=== PATIENT | female | born 1960 | race Caucasian/White ===

== ENCOUNTER 2024-10-23 13:33 | Emergency (ER) | payer BC ==
[2024-10-23 13:44] VITALS: TEMP 98.3
--- NOTE | 2024-10-23 13:59 | ED ---
Female Urogenital HPI - General Chief complaint: Urogenital Stated complaint: Urogenital Time Seen by Provider: 10/23/24 13:58 Source: patient Mode of arrival: ambulatory Limitations: no limitations - History of Present Illness Initial comments: 63-year-old female presenting with chief complaint of hematuria and dysuria. Patient had a cystoscopy back on 09/29 at [facility] due to blood in the urine. States that since then she has been very sore and has had huma hematuria that has not improved. She just finished a recent course of antibiotics and is still having symptoms. No fevers or chills. No nausea or vomiting. Patient states that sometimes she can feel herself passing air from her bladder. No flank pain. - Related Data Allergies Allergy/AdvReac Type Severity Reaction Status Date / Time tetanus and diphtheria Allergy Unknown Verified 10/23/24 13:44 toxoids Childhood Review of Systems ROS Statement: Those systems with pertinent positive or pertinent negative responses have been documented in the HPI. ROS Other: All systems not noted in ROS Statement are negative. Past Medical History Past Medical History: Diabetes Mellitus Additional Past Medical History / Comment(s): UTI, History of Any Multi-Drug Resistant Organisms: None Reported Past Surgical History: Appendectomy, Cholecystectomy, Hysterectomy, Orthopedic Surgery Additional Past Surgical History / Comment(s): rt knee Past Psychological History: No Psychological Hx Reported Smoking Status: Former smoker Past Alcohol Use History: None Reported Past Drug Use History: None Reported General Exam - General Exam Comments Initial Comments: Visual Physical Exam Vital signs reviewed General: Well-appearing, nontoxic, no acute distress. Head: Normocephalic, atraumatic Eyes: PERRLA, EOMI ENT: Airway patent Chest: Nonlabored breathing Skin: No visual rash, normal skin tone Neuro: Alert and oriented 3 Musculoskeletal: No gross abnormalities Limitations: no limitations General appearance: alert, in no apparent distress Head exam: Present: atraumatic, normocephalic, normal inspection Eye exam: Present: normal appearance, EOMI Neck exam: Present: normal inspection. Absent: meningismus Respiratory exam: Present: normal lung sounds bilaterally. Absent: respiratory distress, wheezes, rales, rhonchi, stridor Cardiovascular Exam: Present: regular rate, normal rhythm, normal heart sounds. Absent: systolic murmur, diastolic murmur, rubs, gallop, clicks GI/Abdominal exam: Present: soft, tenderness (Suprapubic). Absent: distended, guarding, rebound, rigid Neurological exam: Present: alert, oriented X3 Psychiatric exam: Present: normal affect, normal mood Skin exam: Present: warm, dry Course Vital Signs 10/23/24 13:37 Temperature 98.3 F Pulse Rate 98 Respiratory 16 Rate Blood Pressure 150/85 O2 Sat by Pulse 98 Oximetry Medical Decision Making - Medical Decision Making Was pt. sent in by a medical professional or institution (, PA, PEST CONTROL SERVICE REPRESENTATIVE, urgent care, hospital, or care home...) When possible be specific @ -No Did you speak to anyone other than the patient for history (EMS, parent, family, police, friend...)? What history was obtained from this source @ -No Did you review nursing and triage notes (agree or disagree)? Why? @ -I reviewed and agree with nursing and triage notes Were old charts reviewed (outside hosp., previous admission, EMS record, old EKG, old radiological studies, urgent care reports/EKG's, care home records)? Report findings @ -No old charts were reviewed Differential Diagnosis (chest pain, altered mental status, abdominal pain women, abdominal pain men, vaginal bleeding, weakness, fever, dyspnea, syncope, headache, dizziness, GI bleed, back pain, seizure, CVA, palpatations, mental health, musculoskeletal)? @ -MDM Differential Abdominal Pain Women: Appendicitis, Cholecystitis, diverticulosis, ischemic bowel, pancreatitis, hepatitis, UTI, gastroenteritis, AAA, incarcerated hernia, bowel obstruction, constipation, inflammatory bowel, hepatitis, peptic ulcer disease, splenic i nfarction, perforated viscus, vulvitis, ovarian torsion, PID, kidney stone, placenta abruption... This is not meant to be an all-inclusive list EKG interpreted by me (3pts min.). @ -As above X-rays interpreted by me (1pt min.). @ -None done CT interpreted by me (1pt min.). @ -CT shows severe cystitis with wall thickening and perivesicular inflammation. There is some air within the bladder and possible intramural air at the right bladder dome. A 2.3 cm developing intramural abscess here is not excluded at this time. Generalized colonic diverticulosis without acute diverticulitis. Tiny hiatal hernia, hepatomegaly at 20.7 cm. An underlying hepatic steatosis U/S interpreted by me (1pt. min.). @ -None done What testing was considered but not performed or refused? (CT, X-rays, U/S, lab s)? Why? @ -None What meds were considered but not given or refused? Why? @ -None Did you discuss the management of the patient with other professionals (professionals i.e. Dr., PA, PEST CONTROL SERVICE REPRESENTATIVE, lab, RT, psych nurse, licensed clinical social worker, flight crew time clerk, teacher, occupational health and safety officer, supportive employment case manager)? Give summary @ -I spoke with Dr. Varner, states that the patient needs to see her urologist that performed the cystoscopy. [place] spoke with Sandeep Nicole, patient's urologist Dr. Villa was not available, no urology Spoke with urologist at [facility] who agrees to see the patient, accepting physician is Dr. Enciso ER Was smoking cessation discussed for >3mins.? @ -No Was critical care preformed (if so, how long)? @ -No Were there social determinants of health that impacted care today? How? (Homelessness, low income, unemployed, alcoholism, drug addiction, transportation, low edu. Level, literacy, decrease access to med. care, custodial, rehab)? @ -No Was there de-escalation of care discussed even if they declined (Discuss DNR or withdrawal of care, Hospice)? DNR status @ -No What co-morbidities impacted this encounter? (DM, HTN, Smoking, COPD, CAD, Cancer, CVA, ARF, Chemo, Hep., AIDS, mental health diagnosis, sleep apnea, morbid obesity)? @ -None Was patient admitted / discharged? Hospital course, mention meds given and route, prescriptions, significant lab abnormalities, going to OR and other pe rtinent info. @ -63-year-old female presented with chief complaint of dysuria, pelvic pain, and hematuria. Has been ongoing since a cystoscopy on 09/29. Workup was initiated by triage. Lab work shows no leukocytosis or anemia. Mild transaminitis. Urine shows large leukocytes and large blood with greater than 182 RBCs and WBCs. Urine is sent for culture. CT shows severe cystitis with wall thickening and perivesicular inflammation. There is concern for some possible air within the bladder but also intramural air at the right bladder dome. Because of this a 2.3 cm developing intramural abscess here is not excluded. Contacted our urologist on-call who states that the patient needs to be managed by her original urologist to perform the cystoscopy. Contacted [facility], her original urologist is not available, they have no urology coverage. Patient requested [facility] for transfer. States that she was unhappy with her original urologist and was hoping to switch, [place] came recommended. Spoke with urology and ER physician at [facility] who accept transfer. Patient was treated with 2 g of cefepime. Also given Tylenol 3 for pain. She wishes to drive herself. She is educated on all of today's findings, treatment plan, and plan for transfer. She is agreeable with this plan. I discussed this case with my attending Dr. Berg. Undiagnosed new problem with uncertain prognosis? @ -No Drug Therapy requiring intensive monitoring for toxicity (Heparin, Nitro, Insulin, Cardizem)? @ -No Were any procedures done? @ -No Diagnosis/symptom? @ -UTI, possible intramural bladder wall abscess Acute, or Chronic, or Acute on Chronic? @ -Acute Uncomplicated (without systemic symptoms) or Complicated (systemic symptoms)? @ -Complicated Side effects of treatment? @ -No Exacerbation, Progression, or Severe Exacerbation? @ -No Poses a threat to life or bodily function? How? (Chest pain, USA, CA, pneumonia, PE, COPD, DKA, ARF, appy, cholecystitis, CVA, Diverticulitis, Homicidal, Suicidal, threat to staff... and all critical care pts) @ -Yes - Lab Data Result diagrams: 10/23/24 14:29 10/23/24 14:29 Lab Results 10/23/24 10/23/24 10/23/24 Range/Units 13:52 14:29 14:29 WBC 5.6 (3.8-10.6) k/uL RBC 4.62 (3.80-5.40) m/uL Hgb 14.3 (11.4-16.0) gm/dL Hct 41.7 (34.0-46.0) % MCV 90.2 (80.0-100.0) fL MCH 30.9 (25.0-35.0) pg MCHC 34.3 (31.0-37.0) g/dL RDW 14.1 (11.5-15.5) % Plt Count 175 (150-450) k/uL MPV 7.4 Neutrophils % 59 % Lymphocytes % 29 % Monocytes % 5 % Eosinophils % 4 % Basophils % 1 % Neutrophils # 3.3 (1.3-7.7) k/uL Lymphocytes # 1.7 (1.0-4.8) k/uL Monocytes # 0.3 (0-1.0) k/uL Eosinophils # 0.2 (0-0.7) k/uL Basophils # 0.0 (0-0.2) k/uL PT (10.0-12.5) sec INR (<1.2) APTT (22.0-30.0) sec Sodium 138 (137-145) mmol/L Potassium 3.8 (3.5-5.1) mmol/L Chloride 101 (98-107) mmol/L Carbon Dioxide 28 (22-30) mmol/L Anion Gap 9 mmol/L BUN 24 H (7-17) mg/dL Creatinine 1.04 (0.52-1.04) mg/dL Est GFR (CKD-EPI)AfAm 65 (>60 ml/min/1.73 sqM) Est GFR (CKD-EPI)NonAf 57 (>60 ml/min/1.73 sqM) Glucose 196 H (74-99) mg/dL Plasma Lactic Acid Renny (0.7-2.0) mmol/L Calcium 9.3 (8.4-10.2) mg/dL Total Bilirubin 0.8 (0.2-1.3) mg/dL AST 38 H (14-36) U/L ALT 45 H (4-34) U/L Alkaline Phosphatase 70 (38-126) U/L Total Protein 7.4 (6.3-8.2) g/dL Albumin 4.6 (3.5-5.0) g/dL Urine Color Light Yellow Urine Appearance Cloudy H (Clear) Urine pH 5.5 (5.0-8.0) Ur Specific [place] 1.023 (1.001-1.035) Urine Protein 1+ H (Negative) Urine Glucose (UA) 4+ H (Negative) Urine Ketones Negative (Negative) Urine Blood Large H (Negative) Urine Nitrite Negative (Negative) Urine Bilirubin Negative (Negative) Urine Urobilinogen <2.0 (<2.0) mg/dL Ur Leukocyte Esterase Large H (Negative) Urine RBC >182 H (0-5) /hpf Urine WBC >182 H (0-5) /hpf Urine WBC Clumps Few H (None) /hpf Urine Yeast (Budding) Few H (None) /hpf 10/23/24 10/23/24 Range/Units 14:29 16:25 WBC (3.8-10.6) k/uL RBC (3.80-5.40) m/uL Hgb (11.4-16.0) gm/dL Hct (34.0-46.0) % MCV (80.0-100.0) fL MCH (25.0-35.0) pg MCHC (31.0-37.0) g/dL RDW (11.5-15.5) % Plt Count (150-450) k/uL MPV Neutrophils % % Lymphocytes % % Monocytes % % Eosinophils % % Basophils % % Neutrophils # (1.3-7.7) k/uL Lymphocytes # (1.0-4.8) k/uL Monocytes # (0-1.0) k/uL Eosinophils # (0-0.7) k/uL Basophils # (0-0.2) k/uL PT 10.0 (10.0-12.5) sec INR 0.9 (<1.2) APTT 20.9 L (22.0-30.0) sec Sodium (137-145) mmol/L Potassium (3.5-5.1) mmol/L Chloride (98-107) mmol/L Carbon Dioxide (22-30) mmol/L Anion Gap mmol/L BUN (7-17) mg/dL Creatinine (0.52-1.04) mg/dL Est GFR (CKD-EPI)AfAm (>60 ml/min/1.73 sqM) Est GFR (CKD-EPI)NonAf (>60 ml/min/1.73 sqM) Glucose (74-99) mg/dL Plasma Lactic Acid Renny 1.9 (0.7-2.0) mmol/L Calcium (8.4-10.2) mg/dL Total Bilirubin (0.2-1.3) mg/dL AST (14-36) U/L ALT (4-34) U/L Alkaline Phosphatase (38-126) U/L Total Protein (6.3-8.2) g/dL Albumin (3.5-5.0) g/dL Urine Color Urine Appearance (Clear) Urine pH (5.0-8.0) Ur Specific [place] (1.001-1.035) Urine Protein (Negative) Urine Glucose (UA) (Negative) Urine Ketones (Negative) Urine Blood (Negative) Urine Nitrite (Negative) Urine Bilirubin (Negative) Urine Urobilinogen (<2.0) mg/dL Ur Leukocyte Esterase (Negative) Urine RBC (0-5) /hpf Urine WBC (0-5) /hpf Urine WBC Clumps (None) /hpf Urine Yeast (Budding) (None) /hpf Disposition Clinical Impression: UTI (urinary tract infection), Bladder wall thickening Narrative: Intramural abscess of the bladder wall Disposition: OTHER INSTITUTION NOT DEFINED Condition: Fair Referrals: Aaron Guillen MD [Primary Care Provider] - 1-2 days Time of Disposition: 18:31 - Out of Hospital Transfer - Req. Specs Out of Hospital Transfer - Requested Specifics: Other Emergency Center ([facility]
[2024-10-23 14:03] LABS: Appearance,Urine Cloudy (Clear); Bilirubin,Urine Negative (Negative); Blood,Urine Large (Negative); Budding Yeast,Urine Few /hpf; Color,Urine Light Yellow; Glucose,Urine (UA) 4+ (Negative); Ketones,Urine Negative (Negative); Leukocyte Esterase,Urine Large (Negative); Nitrite,Urine Negative (Negative); PH, Urine 5.5 (5.0-8.0); Protein,Urine 1+ (Negative); RBC,Urine >182 /hpf (0-5); Specific Gravity,Urine 1.023 (1.001-1.035); Urobilinogen,Urine <2.0 mg/dL (<2.0); WBC,Urine >182 /hpf (0-5)
[2024-10-23 14:40] LABS: Basophils % (A) 1 %; Eosinophils # (A) 0.2 k/uL (0-0.7); Eosinophils % (A) 4 %; HCT 41.7 % (34.0-46.0); HGB 14.3 gm/dL (11.4-16.0); Lymphocytes # (A) 1.7 k/uL (1.0-4.8); Lymphocytes % (A) 29 %; MCH 30.9 pg (25.0-35.0); MCHC 34.3 g/dL (31.0-37.0); MCV 90.2 fL (80.0-100.0); Mean Platelet Volume 7.4; Monocytes # (A) 0.3 k/uL (0-1.0); Monocytes % (A) 5 %; Neutrophils # (A) 3.3 k/uL (1.3-7.7); Neutrophils % (A) 59 %; Platelet Count 175 k/uL (150-450); RBC 4.62 m/uL (3.80-5.40); RDW 14.1 % (11.5-15.5); WBC 5.6 k/uL (3.8-10.6)
[2024-10-23 14:51] LABS: ALT 45 U/L (4-34); AST 38 U/L (14-36); African American GFR (CKD) 65 (>60 ml/min/1.73 sqM); Albumin 4.6 g/dL (3.5-5.0); Alkaline Phosphatase 70 U/L (38-126); Anion Gap 9 mmol/L; Blood Urea Nitrogen 24 mg/dL (7-17); Calcium 9.3 mg/dL (8.4-10.2); Carbon Dioxide 28 mmol/L (22-30); Chloride 101 mmol/L (98-107); Glucose 196 mg/dL (74-99); Non-African American GFR(CKD) 57 (>60 ml/min/1.73 sqM); Potassium 3.8 mmol/L (3.5-5.1); Sodium 138 mmol/L (137-145); Total Bilirubin 0.8 mg/dL (0.2-1.3); Total Protein 7.4 g/dL (6.3-8.2)
--- NOTE | 2024-10-23 16:12 | CT ---
EXAMINATION TYPE: CT abdomen pelvis w con DATE OF EXAM: 10/23/2024 3:49 PM COMPARISON: None. CLINICAL INDICATION: Female, 63 years old with history of Pelvic pain, hematuria, Pt c/o recent UTI. Oral antibiotics taken for 7 days. C/o hematuria and dysuria has returned., TECHNIQUE: Contiguous axial scanning of the abdomen and pelvis following administration of 100 ml Iso poly 300 IV contrast. Delayed images through the kidneys and coronal/sagittal reconstructions perform ed. CT DLP: 1582.4 mGycm, Automated exposure control for dose reduction was used. FINDINGS: Heart normal size without pericardial effusion. Lung bases are without pleural effusion. Tiny hiatal hernia. Liver enlarged at 20.7 cm with low-attenuation suggesting fatty infiltration. Portal venous system is patent. No biliary ductal dilatation. Cholecystectomy clips. Adrenal glands, kidneys, and pancreas within normal limits. Spleen upper limits of normal in size at 13.1 cm. No dilated small bowel, free fluid, or free air. No mesenteric or retroperitoneal lymphadenopathy. Scattered colonic diverticulosis. No pericolonic inflammatory change. No significant stool burden. Scattered pelvic phleboliths. Bladder is collapsed with moderate to severe wall thickening, mucosal hyperemia, and some intralumina l and possible intramural air, possible intramural abscess measuring 2.3 cm at the right bladder dome , sagittal image 66. Prominent perivesicular fat stranding. No abnormal fluid collection in the pelvi s or pelvic lymphadenopathy otherwise seen. Uterus surgically absent. Both ovaries are present. Bones: Mild degenerative change of the hips. Hypertrophic facet arthropathy mid to lower lumbar spine with degenerative grade 1 anterolisthesis L3 -L4. Anterior endplate spondylosis lower thoracic spine. IMPRESSION: 1. SEVERE CYSTITIS WITH WALL THICKENING AND PERIVESICULAR INFLAMMATION. THERE IS SOME AIR WITHIN THE BLADDER AND POSSIBLE INTRAMURAL AIR AT THE RIGHT BLADDER DOME. A 2.3 CM DEVELOPING INTRAMURAL ABSCESS HERE IS NOT EXCLUDED AT THIS TIME. 2. GENERALIZED COLONIC DIVERTICULOSIS WITHOUT ACUTE DIVERTICULITIS. 3. TINY HIATAL HERNIA, HEPATOMEGALY AT 20.7 CM, AN UNDERLYING HEPATIC STEATOSIS. [facility], Workstation: 3, 10/23/2024 4:09 PM
[2024-10-23 16:56] LABS: INR 0.9 (<1.2); Partial Thromboplastin Time 20.9 sec (22.0-30.0)
[2024-10-23] MEDS: CEFEPIME 2 GM in SODIUM CHLORIDE 0.9% 100 ML IVPB STA (17:23)
[2024-10-23] MEDS: Acetaminophen-Codeine 300-30mg TAB PO STA (17:25)
[2024-10-23 18:41] VITALS: BP 135/80; PULSE 87; RESP 18
== END 2024-10-23 18:41 | disposition other institution (70) ==
LOC: EC 13:33
DX: K57.30 Diverticulosis of large intestine without perforation or abscess without bleeding (principal); K44.9 Diaphragmatic hernia without obstruction or gangrene; N30.91 Cystitis, unspecified with hematuria; Z88.8 Allergy status to other drugs, medicaments and biological substances; Z87.891 Personal history of nicotine dependence; Z90.49 Acquired absence of other specified parts of digestive tract
CPT/HCPCS: 36415; 80053; 83605; 85025; 85610; 85730; 81001; 87086; 74177; 99284; 96365; J0692; Q9967